=== PATIENT | female | born 1980 | race African-American/Black ===

== ENCOUNTER 2024-01-30 19:15 | Emergency (ER) | payer BC, SELFPAY ==
[2024-01-30 19:18] VITALS: BP 133/75; BMI 23.8
--- NOTE | 2024-01-30 19:57 | ED.SKININJ ---
HPI-Injury
<YUKI Nayak - Last Filed: 01/31/24 00:02>
General
Chief Complaint: Skin Problem
Source: patient
Exam Limitations: none
Time Seen by Provider: 01/30/24 19:50
Nursing documentation reviewed up to this point in time: agreed with
Travel History
Have you had any contact with someone who has COVID-19?: No
Do you have any symptoms of coronavirus? Fever > 100 degrees, chills, cough, shortness of breath, sore throat, loss of taste or smell, muscle aches, or headache?: No
History of Present Illness-Injury
Is this injury a work related problem?: No
Is pt an associate of [facility]?: No
Initial Injury comments:
This is a 43 year old female who presents to the ER after accidentally cutting her left 2nd digit x1 hour prior to arrival. She reports she was cutting a cabbage when the kitchen knife slipped and sliced the tip of her 2nd digit laceration. She
denies any fevers, chills, vomiting, lightheadedness, or dizziness. She is UTD on immunizations including Tdap.
Review of Systems
<YUKI Nayak - Last Filed: 01/31/24 00:02>
Review of Systems
Allergies reviewed?: Yes
All Other Systems: Not applicable
Constitutional: Reports no symptoms
EENT: Reports no symptoms
Respiratory: Reports no symptoms
Cardiac: Reports no symptoms
ABD/GI: Reports no symptoms
: Reports no symptoms
Musculoskeletal: Reports no symptoms
Skin: Reports other (Laceration on tip of left 2nd digit)
Neurological: Reports no symptoms
Endocrine: Reports no symptoms
Hematologic/Lymphatic: Reports no symptoms
Psychiatric: Reports no symptoms
Phy Exam
<YUKI Nayak - Last Filed: 01/31/24 00:02>
General Physical Exam
General Presentation: well appearing and no apparent distress
General Skin: warm and dry
General Habitus: normal
General Mental: alert
General Hydration: appears well hydrated
ENT Exam
ENT Exam: EOMI, pharynx normal, neck supple and normocephalic
Eye Exam
Eye Exam: PERRL, cornea clear and conjunctiva normal
Cardiovascular Exam
Cardiovascular Exam: regular rate/rhythm, no edema, no murmur and normal peripheral pulses
Pulmonary Exam
Pulmonary Exam: lungs clear, no respiratory distress, no rales, no crackles, no rhonchi, no stridor, no wheezing and no cough
Gastrointestinal Exam
Gastrointestinal Exam: normal bowel sounds, non tender, soft, no organomegaly, no pulsatile mass and non distended
Neurological Exam
Neurological Exam: alert, oriented x3, no motor deficits and speech normal
Musculoskeletal Exam
Musculoskeletal Exam: full ROM and no edema
Skin Exam
Skin Exam: normal color, warm/dry, no rash, no petechia and laceration (1 inch triangular wound flap)
Psychiatric Exam
Psychiatric Exam: normal mood/affect
Course
<YKUI Nayak - Last Filed: 01/31/24 00:02>
Vital Signs
Initial and Last Documented VS:
Initial Vital Signs
Temp Pulse Resp BP Pulse Ox
98 F 60 16 133/75 100
01/30/24 19:18 01/30/24 19:18 01/30/24 19:18 01/30/24 19:18 01/30/24 19:18
Last Documented Vital Signs
Temp Pulse Resp BP Pulse Ox
98 F 60 16 133/75 100
01/30/24 19:18 01/30/24 19:18 01/30/24 19:18 01/30/24 19:18 01/30/24 19:18
<Thiago Perez DO - Last Filed: 01/30/24 20:49>
Vital Signs
Initial and Last Documented VS:
Initial Vital Signs
Temp Pulse Resp BP Pulse Ox
98 F 60 16 133/75 100
01/30/24 19:18 01/30/24 19:18 01/30/24 19:18 01/30/24 19:18 01/30/24 19:18
Last Documented Vital Signs
Temp Pulse Resp BP Pulse Ox
98 F 60 16 133/75 100
01/30/24 19:18 01/30/24 19:18 01/30/24 19:18 01/30/24 19:18 01/30/24 19:18
<YUKI Nayak - Last Filed: 01/31/24 00:02>
MDM/Problems Addressed
Differential Diagnosis Includes:
Laceration vs abrasion
This patients history and presentation is most consistent with a laceration. She was using a kitchen knife that made contact with the tip of her left 2nd digit causing a laceration.
<YUKI Nayak - Last Filed: 01/31/24 00:02>
*Critical Care Note
Total Time (30-74mins, 75-104mins- exclusive of procedures): Not Applicable
ED Attending Note
<YUKI Nayak - Last Filed: 01/31/24 00:02>
-
Portions of this chart may have been created with voice recognition software.� Occasional wrong word or��sound alike� substitutions may have occurred due to the inherent limitations of voice recognition software.
<Thiago Perez DO - Last Filed: 01/30/24 20:49>
ED Attending Note
Patient seen and examined by attending physician: Yes
I performed the substantive portion of visit, reviewed & personally made and approve the management plan that is documented in note by myself or ION.: Yes
ED Attending Note:
Pleasant 43-year-old female with left index finger laceration while slicing food. It is superficial but there is non-vascularized flap. Bleeding was controlled with direct pressure. Tdap within last year. Patient was seen in conjunction with the
PA student. I have reviewed and agree with the history and treatment plan presented. On my independent physical exam, patient is awake, alert, and oriented x3. No acute distress. There is a 1 cm x 0.5 cm superficial flap to the left index
finger. Wound was closed with direct pressure. No sutures necessary. Surgifoam and tube gauze was applied.
Discharge Plan
Departure
Patient Disposition: Home (Routine Discharge)
Date of Disposition: 01/30/24
Time of Disposition: 20:38
Patient with high blood pressure during this ER visit?: Yes
Condition: Good
Discharge Problem:
Finger laceration
Instructions: Wound Care (DC), BLOOD PRESSURE, Laceration
Referrals:
Winnie Pimentel CRNP [Family Provider] -
Activity Restrictions/Additional Instructions:
It was a pleasure meeting you and taking part in your care. We hope for your continued healing and wellness.
Please read discharge instructions in their entirety. However, they are for general education and may not describe your exact diagnosis at discharge. Information on your ER visit and medical conditions were discussed with you along with appropriate
follow up information...
If indicated, please take your medications as instructed and indicated on discharge paperwork.
Please schedule a follow up appointment as directed. Call to schedule an appointment
Please return to the emergency department with ANY change in, persisting, or worsening of symptoms. If any of your symptoms do not improve, or persist, or become more severe within 6-12 hours, please return to the emergency department for further
care.
Please return to the emergency department if you develop a headache, neck pain/stiffness, fever greater than 100.4F, chest pain, shortness of breath, persistent nausea, vomiting, slurred speech, difficulty walking, numbness/tingling, weakness, signs
of infection or any other symptoms that are worrisome to you.
If you have any questions or concerns please do not hesitate to call the Hospital at or E-mail me directly at [email or web address]
Interventions
Interventions:
*Risk Screen - Suicide Last Done: 01/30/24 19:18
*General Assessment Last Done: 01/30/24 20:53
*Neglect/Abuse Screening Last Done: 01/30/24 19:18
ED- Fall Risk Assessment Last Done: 01/30/24 20:53
*ED COVID-19 Vaccine History Last Done: 01/30/24 19:18
*Nursing Disposition Last Done: 01/30/24 20:53
ED-Skin Assessment Last Done: 01/30/24 20:53
Discharge Date and Time
Discharge Date/Time: 01/30/24 20:54
Print Language: [place]EN[place]
== END 2024-01-30 20:54 | disposition home or self-care (01) ==
LOC: EMR 19:15
PROVIDERS: EMERGENCY PHYSICIAN Student in an Organized Health Care Education/Training Program; FAMILY PHYSICIAN Nurse Practitioner Family
DX: S61.211A Laceration without foreign body of left index finger without damage to nail, initial encounter (principal); W26.0XXA Contact with knife, initial encounter
CPT/HCPCS: 99282; 12001

== ENCOUNTER 2024-06-05 17:45 | Emergency (ER) | payer BC, SELFPAY ==
[2024-06-05 17:49] VITALS: BP 149/95
[2024-06-05 18:11] LABS: Carboxyhemoglobin 2.1 %
--- NOTE | 2024-06-05 19:34 | ED.GENMED ---
History of Present Illness
General
Chief Complaint: Breathing Problem
Time Seen by Provider: 06/05/24 19:12
History of Present Illness
History of Present Illness:
Patient presents to the emergency department with concern for carbon monoxide inhalation. Notes that she was grilling outside on a short girls about 1 hour. She began to feel lightheaded and short of breath. She went inside and symptoms
persisted. She went to the urgent care where she had a chest x-ray and EKG done that were reportedly unremarkable. She was sent to the emergency department for carboxyhemoglobin check. She states that her symptoms have entirely resolved at this
time and she is feeling better. Denies any history of lung disease or asthma.
Phy Exam
Physical Exam
Physical Exam:
GENERAL APPEARANCE: NAD, well developed/ well nourished
EYES lids/conjunctiva normal
EARS/NOSE/THROAT Mucous membranes moist, uvula midline without oral pharyngeal erythema, exudate or swelling
HEAD/NECK normocephalic atraumatic, neck is supple.
RESPIRATORY respiratory effort normal, speaks in full sentences, no accessory muscle use. Lungs clear to auscultation without rhonchi, wheezes, rales
CARDIAC Regular rate and rhythm, no edema.
ABDOMINAL Soft, ND/NT.
MUSCLES/EXTREMITIES No abnormal range of motion, no swelling.
SKIN Warm, pink and dry. No rashes
NEUROLOGICAL Speech is clear and appropriate. Normal level of consciousness. 5/5 strength in all extremities.
PSYCH Normal mood and affect. Judgement/competence is appropriate
Course
Orders/Labs/Results
Orders:
Orders
06/05/24 17:50
EKG [Electrocardiogram (*1)] Urgent
Reason for Study: Shortness of Breath
06/05/24 17:51
EKG- Treatment ONCE
06/05/24 18:04
Carboxyhemoglobin Urgent
Vital Signs
Initial and Last Documented VS:
Initial Vital Signs
Temp Pulse Resp BP Pulse Ox
97.8 F 82 17 149/95 99
06/05/24 17:49 06/05/24 17:49 06/05/24 17:49 06/05/24 17:49 06/05/24 17:49
Last Documented Vital Signs
Temp Pulse Resp BP Pulse Ox
97.8 F 86 18 149/95 98
06/05/24 17:49 06/05/24 20:41 06/05/24 20:41 06/05/24 17:49 06/05/24 20:41
*Critical Care Note
Total Time (30-74mins, 75-104mins- exclusive of procedures): Not Applicable
ED Attending Note
ED Attending Note
ED Attending Note:
Carboxyhemoglobin is normal here. Patient is breathing comfortably on room air and is asymptomatic. EKG without acute findings. Will upload chest x-ray and review.
CXR reviewed, no significant injury seen.
-
Portions of this chart may have been created with voice recognition software.� Occasional wrong word or��sound alike� substitutions may have occurred due to the inherent limitations of voice recognition software.
Discharge Plan
Departure
Patient Disposition: Home (Routine Discharge)
Date of Disposition: 06/05/24
Time of Disposition: 20:31
Patient with high blood pressure during this ER visit?: Yes
Discharge Problem:
mild inhalation injury
Instructions: Carboxyhemoglobin Blood Test
Referrals:
Som López MD [Family Provider] -
Interventions
Interventions:
*Risk Screen - Suicide Last Done: 06/05/24 20:42
*General Assessment Last Done: 06/05/24 20:42
*Neglect/Abuse Screening Last Done: 06/05/24 20:42
ED- Fall Risk Assessment Last Done: 06/05/24 20:42
*ED COVID-19 Vaccine History Last Done: 06/05/24 20:42
*Nursing Disposition Last Done: 06/05/24 20:42
ED- Cardiac Assessment Last Done: 06/05/24 20:40
ED- Pulmonary Assessment Last Done: 06/05/24 20:40
Discharge Date and Time
Discharge Date/Time: 06/05/24 20:44
Print Language: [place]
== END 2024-06-05 20:44 | disposition home or self-care (01) ==
LOC: EMR 17:45
PROVIDERS: Physician Assistant; EMERGENCY PHYSICIAN Emergency Medicine; FAMILY PHYSICIAN Family Medicine
DX: J68.9 Unspecified respiratory condition due to chemicals, gases, fumes and vapors (principal); T58.11XA Toxic effect of carbon monoxide from utility gas, accidental (unintentional), initial encounter
CPT/HCPCS: 99284; 82375; 93005

== ENCOUNTER → 2024-12-27 08:39 | Outpatient (REF) | payer BC, SELFPAY ==
[2024-12-27 16:48] LABS: ALT (SGPT) 36 U/L (0-35); AST (SGOT) 34 U/L (14-36); Albumin 4.8 g/dl (3.5-5.0); Alkaline Phosphatase 57 U/L (38-126); Blood Urea Nitrogen 11 mg/dl (7-17); Calcium 10.3 mg/dl (8.4-10.2); Carbon Dioxide 29 mmol/L (22-30); Chloride 97 mmol/L (98-107); Glucose 111 mg/dl (70-99); HDL Cholesterol 57 mg/dl; LDL Cholesterol, Calculated 89 mg/dl; Potassium 4.1 mmol/L (3.5-5.1); Sodium 134 mmol/L (135-145); Total Bilirubin 0.8 mg/dl (0.2-1.3); Total Cholesterol 175 mg/dl (50-199); Total Protein 7.6 g/dl (6.3-8.2); Triglyceride 146 mg/dl (10-149); Very Low Density Lipoprotein 29 mg/dl (0-30); eGFR > 60.00
[2024-12-27 17:18] LABS: TSH Reflex To Free T4 2.53 uIU/ml (0.47-4.68)
== END ==
LOC: HWLAB 08:39
PROVIDERS: ATTENDING PHYSICIAN Internal Medicine Cardiovascular Disease; FAMILY PHYSICIAN Nurse Practitioner Family
DX: E05.90 Thyrotoxicosis, unspecified without thyrotoxic crisis or storm (principal); I10 Essential (primary) hypertension; Z00.00 Encounter for general adult medical examination without abnormal findings
CPT/HCPCS: 36415; 80053; 80061; 84443

== ENCOUNTER → 2025-02-03 13:31 | Outpatient (REF) | payer BC, SELFPAY | LOC: HWRCS 13:31 | PROVIDERS: ATTENDING PHYSICIAN Internal Medicine Cardiovascular Disease; FAMILY PHYSICIAN Obstetrics & Gynecology | DX: I34.0 Nonrheumatic mitral (valve) insufficiency (principal) | CPT/HCPCS: 93306 ==

== ENCOUNTER → 2025-02-24 09:01 | Outpatient (REF) | payer BC, SELFPAY | LOC: HWWDC 09:01 | PROVIDERS: ATTENDING PHYSICIAN Obstetrics & Gynecology; FAMILY PHYSICIAN Nurse Practitioner Family | DX: Z12.31 Encounter for screening mammogram for malignant neoplasm of breast (principal) | CPT/HCPCS: 77063; 77067 ==